=== PATIENT | male | born 1995 | race Caucasian/White ===

== ENCOUNTER 2019-01-19 13:15 | Inpatient (IN) ==
[2019-01-19 14:25] LABS: Basophils # 0.1 10*3/uL (0.0-0.2); Basophils % 0.3 % (0.0-0.8); Eosinophils # 0.1 10*3/uL (0.0-0.87); Eosinophils % 0.8 % (0.00-10.9); Hematocrit 42.4 VOL% (42.0-52.0); Hemoglobin 11.7 GM/DL (14.0-18.0); Immature Granulocytes % 0.6 %; Immature Granulocytes Absolute 0.09 #; Lymphocytes # 2.4 10*3/uL (1.4-4.0); Lymphocytes % 15.9 % (21.2-54.2); Mean Corpuscular HGB Conc 27.6 GM/DL (32-36); Mean Corpuscular Volume 85.8 FL (87-102); Monocytes % 3.8 % (1.7-12.7); Neutrophils % 78.6 % (38.7-73.9); Platelet Count 280 T/CUMM (130-400); Red Blood Count 4.94 MC/CUMM (3.8-5.5); Red Cell Distribution Width 17.1 % (9.3-17.3); White Blood Count 15.2 T/CUMM (4-12)
[2019-01-19 14:29] LABS: Albumin 2.9 G/DL (3.4-5.0); Bilirubin,Total 0.8 MG/DL (0.2-1.0); Calcium 7.1 MG/DL (8.5-10.1); Osmolality,Calculated 285.1 MOS/KG (273-304); Total Protein 6.9 G/DL (6.4-8.3)
[2019-01-19] MEDS ORDERED: LEVOFLOXACIN INJ 500 MG in PREMIX 1 EACH IV STA (15:03)
[2019-01-19] MEDS ORDERED: FUROSEMIDE 40 MG/4 ML VIAL IV ONE (17:00)
[2019-01-19] MEDS: cefTRIAXone 1,000 MG in SYRINGE 1 EACH IV SCH (18:08)
[2019-01-19] MEDS: ENOXAPARIN 40 MG/0.4 ML SYRINGE SUBCUT SCH (18:11)
[2019-01-19] MEDS: AZITHROMYCIN INJ 500 MG in SODIUM CHLORIDE 0.9% 250 ML IV SCH (18:13)
[2019-01-19] MEDS: ALBUTEROL/IPRATROPIUM 3 ML NEB RESP TX SCH (19:50)
[2019-01-19] MEDS: BENZONATATE 100 MG CAPSULE PO SCH (23:08)
[2019-01-20] MEDS: ALBUTEROL/IPRATROPIUM 3 ML NEB RESP TX SCH ×4 (00:38→19:00)
[2019-01-20 05:32] LABS: Osmolality,Calculated 283.1 MOS/KG (273-304); Risk Ratio 3.35; Thyroid Stimulating Hormone 3.97 uIU/ml (0.358-3.74); VLDL CHOLESTEROL 18.4 MG/DL
[2019-01-20 05:34] LABS: Basophils # 0.1 10*3/uL (0.0-0.2); Basophils % 0.5 % (0.0-0.8); Eosinophils # 0.3 10*3/uL (0.0-0.87); Eosinophils % 1.6 % (0.00-10.9); Hematocrit 41.9 VOL% (42.0-52.0); Hemoglobin 11.3 GM/DL (14.0-18.0); Immature Granulocytes % 0.6 %; Lymphocytes # 2.6 10*3/uL (1.4-4.0); Lymphocytes % 16.1 % (21.2-54.2); Mean Corpuscular Volume 87.8 FL (87-102); Mean Platelet Volume 11.8 FL (9.6-12.0); Monocytes % 4.5 % (1.7-12.7); Neutrophils % 76.7 % (38.7-73.9); Platelet Count 266 T/CUMM (130-400); Red Blood Count 4.77 MC/CUMM (3.8-5.5); Red Cell Distribution Width 16.9 % (9.3-17.3); White Blood Count 15.9 T/CUMM (4-12)
[2019-01-20 05:38] LABS: Hypochromasia Slight; Platelet Estimate Normal; Polychromasia Few
[2019-01-20] MEDS: BENZONATATE 100 MG CAPSULE PO SCH ×3 (08:31→22:10)
[2019-01-20] MEDS: PANTOPRAZOLE 40 MG TABLET PO SCH (08:31)
[2019-01-20] MEDS ORDERED: FUROSEMIDE 40 MG/4 ML VIAL IV ONE (11:48)
[2019-01-20] MEDS: ENOXAPARIN 40 MG/0.4 ML SYRINGE SUBCUT SCH (16:09)
[2019-01-20] MEDS: cefTRIAXone 1,000 MG in SYRINGE 1 EACH IV SCH (16:10)
[2019-01-20] MEDS: ACETAMINOPHEN 325 MG TABLET PO PRN (16:13)
[2019-01-20] MEDS: AZITHROMYCIN INJ 500 MG in SODIUM CHLORIDE 0.9% 250 ML IV SCH (16:18)
[2019-01-20] MEDS: FUROSEMIDE 40 MG/4 ML VIAL IV SCH (17:37)
[2019-01-21] MEDS: ALBUTEROL/IPRATROPIUM 3 ML NEB RESP TX SCH ×4 (01:20→19:30)
[2019-01-21 04:57] LABS: Basophils % 0.2 % (0.0-0.8); Eosinophils # 0.3 10*3/uL (0.0-0.87); Eosinophils % 1.7 % (0.00-10.9); Hematocrit 40.2 VOL% (42.0-52.0); Immature Granulocytes % 0.5 %; Immature Granulocytes Absolute 0.07 #; Lymphocytes # 1.9 10*3/uL (1.4-4.0); Lymphocytes % 13.1 % (21.2-54.2); Mean Corpuscular HGB Conc 27.1 GM/DL (32-36); Mean Corpuscular Volume 87.2 FL (87-102); Mean Platelet Volume 11.6 FL (9.6-12.0); Monocytes % 4.5 % (1.7-12.7); Platelet Count 272 T/CUMM (130-400); Red Blood Count 4.61 MC/CUMM (3.8-5.5); Red Cell Distribution Width 16.6 % (9.3-17.3); White Blood Count 14.3 T/CUMM (4-12)
[2019-01-21 05:16] LABS: Hemoglobin 10.9 GM/DL (14.0-18.0)
[2019-01-21 05:17] LABS: Hypochromasia 1+
[2019-01-21 05:18] LABS: Platelet Estimate Adequate
[2019-01-21 05:20] LABS: Calcium 6.7 MG/DL (8.5-10.1); Osmolality,Calculated 278.5 MOS/KG (273-304)
[2019-01-21 05:22] LABS: ABG Base Excess 13.7 MMOL/L (-2.5-2.5); ABG HCO3 37.5 MMOL/L (20-26); ABG Oxygen Saturation 95.1 % (95-100); ABG PH 7.371 (7.35-7.45); ABG PO2 73.6 MM HG (80-95); ABG TCO2 38.2 MMOL/L (23-27); Allen Test Positive
[2019-01-21 05:27] LABS: ABG PCO2 73.5 MM HG (35-48)
[2019-01-21] MEDS: FUROSEMIDE 40 MG/4 ML VIAL IV SCH ×2 (09:40→16:09)
[2019-01-21] MEDS: PANTOPRAZOLE 40 MG TABLET PO SCH (09:41)
[2019-01-21] MEDS: BENZONATATE 100 MG CAPSULE PO SCH ×3 (09:41→20:31)
[2019-01-21] MEDS ORDERED: FUROSEMIDE 40 MG/4 ML VIAL IV ONE (12:03)
[2019-01-21] MEDS: ACETAMINOPHEN 325 MG TABLET PO PRN ×2 (13:41→18:11)
[2019-01-21] MEDS: cefTRIAXone 1,000 MG in SYRINGE 1 EACH IV SCH (16:09)
[2019-01-21] MEDS: ENOXAPARIN 40 MG/0.4 ML SYRINGE SUBCUT SCH (16:10)
[2019-01-21] MEDS ORDERED: AZITHROMYCIN 250 MG TABLET PO SCH (16:30)
[2019-01-22] MEDS: ACETAMINOPHEN 325 MG TABLET PO PRN (01:40)
[2019-01-22] MEDS: ALBUTEROL/IPRATROPIUM 3 ML NEB RESP TX SCH ×3 (02:26→14:02)
[2019-01-22 05:24] LABS: Calcium 6.8 MG/DL (8.5-10.1); Osmolality,Calculated 276.7 MOS/KG (273-304)
[2019-01-22 05:48] LABS: Basophils % 0.3 % (0.0-0.8); Eosinophils # 0.3 10*3/uL (0.0-0.87); Eosinophils % 1.8 % (0.00-10.9); Hematocrit 39.6 VOL% (42.0-52.0); Hemoglobin 11.4 GM/DL (14.0-18.0); Immature Granulocytes % 0.5 %; Immature Granulocytes Absolute 0.07 #; Lymphocytes # 2.1 10*3/uL (1.4-4.0); Lymphocytes % 13.2 % (21.2-54.2); Mean Corpuscular HGB Conc 28.8 GM/DL (32-36); Mean Corpuscular Volume 84.3 FL (87-102); Mean Platelet Volume 11.6 FL (9.6-12.0); Neutrophils % 79.2 % (38.7-73.9); Platelet Count 266 T/CUMM (130-400); Red Cell Distribution Width 16.4 % (9.3-17.3); White Blood Count 15.6 T/CUMM (4-12)
[2019-01-22 05:57] LABS: Anisocytosis 1+; Platelet Estimate Adequate
[2019-01-22] MEDS: BENZONATATE 100 MG CAPSULE PO SCH (08:47)
[2019-01-22] MEDS: PANTOPRAZOLE 40 MG TABLET PO SCH (08:47)
[2019-01-22] MEDS: FUROSEMIDE 40 MG/4 ML VIAL IV SCH (08:47)
[2019-01-22] MEDS: POTASSIUM CHLORIDE 20 MEQ TABLET PO PRN ×3 (10:09→13:59)
[2019-01-22 12:29] VITALS: BP 104/75
== END 2019-01-22 15:08 | disposition home or self-care (01) | DRG 194 ==
LOC: N.ED 13:15 → N.EDINP 16:20 → N.2E 16:48
PROVIDERS: ADMIT Internal Medicine; ATTEND Internal Medicine

== ENCOUNTER 2019-01-24 13:28 | Inpatient (IN) ==
[2019-01-24 16:45] LABS: Alanine Aminotransferase 21 U/L (16-61); Albumin 2.7 G/DL (3.4-5.0); Alkaline Phosphatase 80 U/L (45-117); Aspartate Amino Transferase 22 U/L (0-37); Blood Urea Nitrogen 17 MG/DL (7-18); Glucose 86 MG/DL (74-106); Osmolality,Calculated 273.8 MOS/KG (273-304); Total Protein 7.5 G/DL (6.4-8.3)
[2019-01-24] MEDS ORDERED: ACETAMINOPHEN 325 MG TABLET PO PRN (16:46)
[2019-01-24] MEDS ORDERED: ONDANSETRON 4 MG/2 ML VIAL IV PRN (16:46)
[2019-01-24] MEDS ORDERED: PROMETHAZINE 25 MG/1 ML VIAL IM PRN (16:46)
[2019-01-24] MEDS ORDERED: ALBUTEROL 2.5 MG/3 ML NEB RESP TX PRN (16:49)
[2019-01-24 16:52] LABS: Basophils % 0.2 % (0.0-0.8); Eosinophils # 0.2 10*3/uL (0.0-0.87); Eosinophils % 1.2 % (0.00-10.9); Hematocrit 39.5 VOL% (42.0-52.0); Hemoglobin 11.3 GM/DL (14.0-18.0); Immature Granulocytes % 0.4 %; Immature Granulocytes Absolute 0.05 #; Lymphocytes # 1.6 10*3/uL (1.4-4.0); Lymphocytes % 12.6 % (21.2-54.2); Mean Corpuscular HGB Conc 28.6 GM/DL (32-36); Mean Corpuscular Volume 84.2 FL (87-102); Monocytes % 4.3 % (1.7-12.7); Neutrophils % 81.3 % (38.7-73.9); Platelet Count 255 T/CUMM (130-400); Red Blood Count 4.69 MC/CUMM (3.8-5.5); Red Cell Distribution Width 16.5 % (9.3-17.3); White Blood Count 12.8 T/CUMM (4-12)
[2019-01-24] MEDS ORDERED: SODIUM CHLORIDE 0.9% 1,000 ML IV SCH (17:00)
[2019-01-24] MEDS ORDERED: PANTOPRAZOLE 40 MG TABLET PO SCH (17:00)
[2019-01-24 18:30] LABS: Barbiturates Screen,Urine Negative (Negative); Benzodiazepines Screen,Urine Negative (Negative); Cannabinoid Screen,Urine Negative (Negative); Opiate Screen,Urine Positive (Negative); Phencyclidine Screen,Urine Negative (Negative)
[2019-01-24 21:46] LABS: Anisocytosis 1+; Hypochromasia 1+; Microcytosis 1+
[2019-01-24 21:47] LABS: Platelet Estimate Adequate
[2019-01-24] MEDS: AMOXICILLIN 500 MG CAPSULE PO SCH (22:13)
[2019-01-24] MEDS: MONTELUKAST 10 MG TABLET PO SCH (22:13)
[2019-01-24] MEDS: PANTOPRAZOLE 40 MG TABLET PO SCH (22:13)
[2019-01-24] MEDS: ENOXAPARIN 40 MG/0.4 ML SYRINGE SUBCUT SCH (22:14)
[2019-01-24] MEDS ORDERED: diphenhydrAMINE 50 MG/1 ML VIAL IV ONE (22:31)
[2019-01-25 05:26] LABS: Albumin 2.8 G/DL (3.4-5.0); Bilirubin,Total 0.7 MG/DL (0.2-1.0); Calcium 7.3 MG/DL (8.5-10.1); Osmolality,Calculated 282.3 MOS/KG (273-304); Thyroid Stimulating Hormone 4.28 uIU/ml (0.358-3.74); Total Protein 7.1 G/DL (6.4-8.3)
[2019-01-25 05:39] LABS: Basophils % 0.2 % (0.0-0.8); Eosinophils # 0.3 10*3/uL (0.0-0.87); Eosinophils % 2.4 % (0.00-10.9); Hematocrit 39.8 VOL% (42.0-52.0); Hemoglobin 11.3 GM/DL (14.0-18.0); Immature Granulocytes % 0.4 %; Immature Granulocytes Absolute 0.06 #; Lymphocytes # 2.3 10*3/uL (1.4-4.0); Lymphocytes % 16.5 % (21.2-54.2); Mean Corpuscular HGB Conc 28.4 GM/DL (32-36); Monocytes % 5.8 % (1.7-12.7); Neutrophils % 74.7 % (38.7-73.9); Platelet Count 248 T/CUMM (130-400); Red Blood Count 4.68 MC/CUMM (3.8-5.5); Red Cell Distribution Width 16.5 % (9.3-17.3); White Blood Count 14.1 T/CUMM (4-12)
[2019-01-25 05:44] LABS: Hypochromasia 1+; Platelet Estimate Adequate
[2019-01-25 05:45] LABS: Microcytosis Slight; Ovalocytes Slight
[2019-01-25] MEDS: AMOXICILLIN 500 MG CAPSULE PO SCH ×3 (05:58→21:02)
[2019-01-25] MEDS ORDERED: POTASSIUM CHLORIDE 20 MEQ TABLET PO ONE (07:13)
[2019-01-25 07:37] LABS: Free T4 (Free Thyroxine) 1.01 NG/DL (0.76-1.46)
[2019-01-25] MEDS: PANTOPRAZOLE 40 MG TABLET PO SCH (21:02)
[2019-01-25] MEDS: MONTELUKAST 10 MG TABLET PO SCH (21:02)
[2019-01-25] MEDS: ENOXAPARIN 40 MG/0.4 ML SYRINGE SUBCUT SCH (21:03)
[2019-01-26] MEDS: AMOXICILLIN 500 MG CAPSULE PO SCH ×3 (06:12→21:35)
[2019-01-26 12:01] LABS: Basophils # 0.1 10*3/uL (0.0-0.2); Basophils % 0.4 % (0.0-0.8); Eosinophils # 0.4 10*3/uL (0.0-0.87); Eosinophils % 2.8 % (0.00-10.9); Hemoglobin 11.2 GM/DL (14.0-18.0); Immature Granulocytes % 0.4 %; Immature Granulocytes Absolute 0.05 #; Lymphocytes # 2.1 10*3/uL (1.4-4.0); Lymphocytes % 16.4 % (21.2-54.2); Mean Corpuscular HGB Conc 26.7 GM/DL (32-36); Mean Corpuscular Volume 87.9 FL (87-102); Mean Platelet Volume 11.3 FL (9.6-12.0); Monocytes % 5.2 % (1.7-12.7); Neutrophils % 74.8 % (38.7-73.9); Platelet Count 262 T/CUMM (130-400); Red Blood Count 4.78 MC/CUMM (3.8-5.5); Red Cell Distribution Width 16.5 % (9.3-17.3); White Blood Count 12.6 T/CUMM (4-12)
[2019-01-26 12:04] LABS: Platelet Estimate Normal
[2019-01-26 12:42] LABS: Alanine Aminotransferase 21 U/L (16-61); Albumin 2.9 G/DL (3.4-5.0); Alkaline Phosphatase 78 U/L (45-117); Aspartate Amino Transferase 17 U/L (0-37); Bilirubin,Total < 0.39 MG/DL (0.2-1.0); Blood Urea Nitrogen 13 MG/DL (7-18); Calcium 7.6 MG/DL (8.5-10.1); Glucose 104 MG/DL (74-106); Osmolality,Calculated 280.3 MOS/KG (273-304); Total Protein 7.6 G/DL (6.4-8.3)
[2019-01-26] MEDS: MONTELUKAST 10 MG TABLET PO SCH (21:35)
[2019-01-26] MEDS: PANTOPRAZOLE 40 MG TABLET PO SCH (21:35)
[2019-01-27] MEDS: AMOXICILLIN 500 MG CAPSULE PO SCH ×2 (05:44→13:17)
[2019-01-27 10:39] LABS: Eosinophils,CSF 1 %; Glucose,CSF 81 MG/DL (40-70); Lymphocytes,CSF 16 %; Monocytes,CSF 2 %; Neutrophils,CSF 81 %
[2019-01-27 10:40] LABS: Appearance,CSF Hazy; Red Blood Cell,CSF 6912 C/CUMM; White Blood Cell,CSF 48 C/CUMM
[2019-01-27 12:30] VITALS: BP 136/83
[2019-01-27 12:51] LABS: Lymphocytes,CSF 54 %; Monocytes,CSF 2 %; Neutrophils,CSF 44 %
[2019-01-27 12:53] LABS: Appearance,CSF Hazy
[2019-01-27 12:54] LABS: Red Blood Cell,CSF 1673 C/CUMM; White Blood Cell,CSF 5 C/CUMM
[2019-01-31 13:26] LABS: West Nile Virus Ab, IgG, CSF Negative (Negative); West Nile Virus Ab, IgM, CSF Negative (Negative)
[2019-02-02 14:26] LABS: VDRL Spinal Fluid Negative (Negative)
[2019-02-04 12:21] LABS: M. Tuberculosis PCR Result Negative (Negative); M. Tuberculosis PCR Source CSF
== END 2019-01-27 17:18 | disposition home or self-care (01) | DRG 101 ==
LOC: EDUNIT# → EDBD → N.ED 13:28 → N.5E 13:28 → N.EDINP 13:28 → SUATTDRO 16:07 → N.5E 19:40
PROVIDERS: ADMIT Family Medicine; ATTEND Internal Medicine Cardiovascular Disease

== ENCOUNTER 2019-01-29 07:26 | Inpatient (IN) ==
[2019-01-29] MEDS ORDERED: HYDROmorphone 2 MG/1 ML VIAL IV STA (07:51)
[2019-01-29] MEDS ORDERED: ONDANSETRON 4 MG/2 ML VIAL IV STA ×2 (07:52→09:00)
[2019-01-29 08:29] LABS: Calcium 8.7 MG/DL (8.5-10.1); Osmolality,Calculated 284.1 MOS/KG (273-304)
[2019-01-29 08:39] LABS: Basophils # 0.1 10*3/uL (0.0-0.2); Basophils % 0.4 % (0.0-0.8); Eosinophils # 0.3 10*3/uL (0.0-0.87); Eosinophils % 2.1 % (0.00-10.9); Hematocrit 40.5 VOL% (42.0-52.0); Immature Granulocytes % 0.5 %; Immature Granulocytes Absolute 0.06 #; Lymphocytes # 2.3 10*3/uL (1.4-4.0); Lymphocytes % 18.1 % (21.2-54.2); Mean Corpuscular HGB Conc 27.7 GM/DL (32-36); Mean Corpuscular Volume 85.4 FL (87-102); Mean Platelet Volume 11.6 FL (9.6-12.0); Monocytes % 5.4 % (1.7-12.7); Neutrophils % 73.5 % (38.7-73.9); Platelet Count 278 T/CUMM (130-400); Red Blood Count 4.74 MC/CUMM (3.8-5.5); Red Cell Distribution Width 16.2 % (9.3-17.3); White Blood Count 12.5 T/CUMM (4-12)
[2019-01-29 08:41] LABS: Hemoglobin 11.2 GM/DL (14.0-18.0)
[2019-01-29] MEDS ORDERED: PROMETHAZINE 25 MG/1 ML VIAL ONE (08:51)
[2019-01-29] MEDS ORDERED: PROMETHAZINE 25 MG/1 ML VIAL IM STA ×2 (08:52→13:00)
[2019-01-29 10:44] LABS: Hypochromasia 1+; Microcytosis 1+; Ovalocytes Slight; Platelet Estimate Normal
[2019-01-29] MEDS ORDERED: LORazepam 2 MG/1 ML VIAL IV STA (15:29)
[2019-01-29] MEDS ORDERED: LORazepam 2 MG/1 ML VIAL ONE (15:31)
[2019-01-29] MEDS ORDERED: BUTALBITAL/ACETAMIN/CAFFEINE 50-325-40 MG TABLET PO ONE (15:45)
[2019-01-29] MEDS ORDERED: SODIUM CHLORIDE 0.9% 1,000 ML IV SCH (16:00)
[2019-01-29] MEDS ORDERED: ACETAMINOPHEN 325 MG TABLET PO PRN (16:04)
[2019-01-29] MEDS ORDERED: ONDANSETRON 4 MG/2 ML VIAL IV PRN (16:04)
[2019-01-29] MEDS ORDERED: PROMETHAZINE 25 MG/1 ML VIAL IM PRN (16:04)
[2019-01-29] MEDS ORDERED: ALBUTEROL 2.5 MG/3 ML NEB RESP TX PRN (16:07)
[2019-01-29 16:39] LABS: ABG Base Excess 2.1 MMOL/L (-2.5-2.5); ABG HCO3 26.3 MMOL/L (20-26); ABG Oxygen Saturation 96.3 % (95-100); ABG PH 7.237 (7.35-7.45); ABG TCO2 29.3 MMOL/L (23-27)
[2019-01-29 16:41] LABS: ABG PCO2 76.3 MM HG (35-48)
[2019-01-29] MEDS: ENOXAPARIN 40 MG/0.4 ML SYRINGE SUBCUT SCH (16:57)
[2019-01-29] MEDS ORDERED: cloNIDine 0.1 MG TABLET PO SCH (19:00)
[2019-01-29 19:25] LABS: ABG Base Excess 3.8 MMOL/L (-2.5-2.5); ABG HCO3 27.7 MMOL/L (20-26); ABG Oxygen Saturation 92.8 % (95-100); ABG PCO2 65.3 MM HG (35-48); ABG PH 7.303 (7.35-7.45); Allen Test Positive; Pt O2 Delivery Device BIPAP
[2019-01-29 21:04] LABS: Apearance,Urine CLEAR (Clear); Bilirubin,Urine Negative (Negative); Blood, Urine Moderate mg/dL (Negative); Glucose,Urine (UA) Negative (Negative); Hyaline Casts,Urine 1 /LPF (0-3); Ketones,Urine Negative (Negative); Mucus,Urine Moderate /LPF (Occasional); Nitrite,Urine Negative (Negative); Protein,Urine Negative; RBC,Urine 9 /HPF (0-4); Squamous Epithelial Cell,Urine Occasional /HPF (0-10); Urine Color Yellow (Yellow); Urine Specific Gravity 1.018 (1.001-1.035); Urine Urobilinogen < 2.0 EU/DL (0.2-1.0); WBC,Urine 1 /HPF (0-6)
[2019-01-29] MEDS: acetaZOLAMIDE 250 MG TABLET PO SCH (22:06)
[2019-01-29] MEDS: MONTELUKAST 10 MG TABLET PO SCH (22:06)
[2019-01-29] MEDS: AMOXICILLIN 500 MG CAPSULE PO SCH (22:06)
[2019-01-30 03:13] LABS: Allen Test Positive; Pt O2 Delivery Device BIPAP
[2019-01-30 03:14] LABS: ABG Base Excess 5.5 MMOL/L (-2.5-2.5); ABG HCO3 33.5 MMOL/L (20-26); ABG Oxygen Saturation 91.4 % (95-100); ABG PCO2 67.1 MM HG (35-48); ABG PH 7.316 (7.35-7.45); ABG PO2 71.2 MM HG (80-95); ABG TCO2 35.5 MMOL/L (23-27)
[2019-01-30 05:20] LABS: Basophils % 0.3 % (0.0-0.8); Eosinophils % 0.2 % (0.00-10.9); Immature Granulocytes % 0.7 %; Immature Granulocytes Absolute 0.09 #; Lymphocytes # 1.8 10*3/uL (1.4-4.0); Lymphocytes % 13.4 % (21.2-54.2); Mean Corpuscular HGB Conc 27.5 GM/DL (32-36); Mean Platelet Volume 11.7 FL (9.6-12.0); Neutrophils % 80.4 % (38.7-73.9); Platelet Count 264 T/CUMM (130-400); Red Blood Count 4.65 MC/CUMM (3.8-5.5); Red Cell Distribution Width 16.3 % (9.3-17.3); White Blood Count 13.2 T/CUMM (4-12)
[2019-01-30 05:22] LABS: Albumin 2.6 G/DL (3.4-5.0); Bilirubin,Total 0.7 MG/DL (0.2-1.0); Calcium 8.4 MG/DL (8.5-10.1); Osmolality,Calculated 285.8 MOS/KG (273-304); Total Protein 6.9 G/DL (6.4-8.3)
[2019-01-30 06:23] LABS: Allen Test Positive; Pt O2 Delivery Device CPAP
[2019-01-30 06:24] LABS: ABG Base Excess 4.9 MMOL/L (-2.5-2.5); ABG HCO3 28.7 MMOL/L (20-26); ABG Oxygen Saturation 94.6 % (95-100); ABG PCO2 66.7 MM HG (35-48); ABG PH 7.307 (7.35-7.45); ABG PO2 74.6 MM HG (80-95); ABG TCO2 30.2 MMOL/L (23-27)
[2019-01-30] MEDS: AMOXICILLIN 500 MG CAPSULE PO SCH ×3 (06:58→21:49)
[2019-01-30] MEDS: PANTOPRAZOLE 40 MG TABLET PO SCH (09:24)
[2019-01-30] MEDS: acetaZOLAMIDE 250 MG TABLET PO SCH ×2 (09:24→21:49)
[2019-01-30] MEDS: ENOXAPARIN 40 MG/0.4 ML SYRINGE SUBCUT SCH (16:14)
[2019-01-30] MEDS: MONTELUKAST 10 MG TABLET PO SCH (21:49)
[2019-01-31 03:55] LABS: ABG Oxygen Saturation 95.2 % (95-100); ABG PCO2 63.8 MM HG (35-48); ABG PO2 75.3 MM HG (80-95); ABG TCO2 29.2 MMOL/L (23-27); Allen Test Positive; Pt O2 Delivery Device BIPAP
[2019-01-31 05:12] LABS: Calcium 8.2 MG/DL (8.5-10.1); Osmolality,Calculated 289.8 MOS/KG (273-304)
[2019-01-31 05:24] LABS: Basophils % 0.3 % (0.0-0.8); Eosinophils # 0.2 10*3/uL (0.0-0.87); Eosinophils % 1.4 % (0.00-10.9); Hematocrit 38.7 VOL% (42.0-52.0); Hemoglobin 10.9 GM/DL (14.0-18.0); Immature Granulocytes % 0.7 %; Immature Granulocytes Absolute 0.09 #; Lymphocytes # 3.9 10*3/uL (1.4-4.0); Lymphocytes % 32.4 % (21.2-54.2); Mean Corpuscular HGB Conc 28.2 GM/DL (32-36); Mean Corpuscular Volume 85.1 FL (87-102); Mean Platelet Volume 12.3 FL (9.6-12.0); Monocytes % 5.5 % (1.7-12.7); Neutrophils % 59.7 % (38.7-73.9); Platelet Count 277 T/CUMM (130-400); Red Blood Count 4.55 MC/CUMM (3.8-5.5); Red Cell Distribution Width 16.5 % (9.3-17.3); White Blood Count 12.1 T/CUMM (4-12)
[2019-01-31] MEDS: AMOXICILLIN 500 MG CAPSULE PO SCH ×3 (06:16→21:07)
[2019-01-31] MEDS: acetaZOLAMIDE 250 MG TABLET PO SCH ×2 (08:37→20:42)
[2019-01-31] MEDS: PANTOPRAZOLE 40 MG TABLET PO SCH (08:37)
[2019-01-31] MEDS: ENOXAPARIN 40 MG/0.4 ML SYRINGE SUBCUT SCH (16:12)
[2019-01-31] MEDS: MONTELUKAST 10 MG TABLET PO SCH (20:43)
[2019-02-01] MEDS: AMOXICILLIN 500 MG CAPSULE PO SCH ×3 (05:30→21:57)
[2019-02-01 06:10] LABS: Osmolality,Calculated 285.1 MOS/KG (273-304)
[2019-02-01 06:19] LABS: Basophils # 0.1 10*3/uL (0.0-0.2); Basophils % 0.5 % (0.0-0.8); Eosinophils # 0.2 10*3/uL (0.0-0.87); Eosinophils % 1.6 % (0.00-10.9); Hematocrit 38.6 VOL% (42.0-52.0); Hemoglobin 10.8 GM/DL (14.0-18.0); Immature Granulocytes % 0.5 %; Immature Granulocytes Absolute 0.05 #; Lymphocytes # 3.1 10*3/uL (1.4-4.0); Lymphocytes % 28.1 % (21.2-54.2); Mean Corpuscular Volume 85.2 FL (87-102); Mean Platelet Volume 11.6 FL (9.6-12.0); Monocytes % 5.4 % (1.7-12.7); Neutrophils % 63.9 % (38.7-73.9); Platelet Count 250 T/CUMM (130-400); Red Blood Count 4.53 MC/CUMM (3.8-5.5); Red Cell Distribution Width 16.5 % (9.3-17.3); White Blood Count 10.9 T/CUMM (4-12)
[2019-02-01 06:38] LABS: Giant Platelets Few; Hypochromasia 1+
[2019-02-01 06:39] LABS: Microcytosis Slight; Platelet Estimate Adequate
[2019-02-01] MEDS: PANTOPRAZOLE 40 MG TABLET PO SCH (09:01)
[2019-02-01] MEDS: acetaZOLAMIDE 250 MG TABLET PO SCH ×2 (09:01→21:57)
[2019-02-01] MEDS: ENOXAPARIN 40 MG/0.4 ML SYRINGE SUBCUT SCH (16:04)
[2019-02-01] MEDS: MONTELUKAST 10 MG TABLET PO SCH (21:57)
[2019-02-02] MEDS: AMOXICILLIN 500 MG CAPSULE PO SCH ×2 (06:09→13:17)
[2019-02-02] MEDS: acetaZOLAMIDE 250 MG TABLET PO SCH (09:38)
[2019-02-02] MEDS: PANTOPRAZOLE 40 MG TABLET PO SCH (09:38)
[2019-02-02 12:44] VITALS: BP 130/81
== END 2019-02-02 13:35 | disposition home or self-care (01) | DRG 206 ==
LOC: N.ED 07:26 → N.EDINP 07:26 → OBSVTOIN 16:04 → SUATTDRO 16:04 → N.5E 16:43 → N.ICU 16:55 → N.5E 01-30 09:48
PROVIDERS: ADMIT Internal Medicine Cardiovascular Disease; ATTEND Internal Medicine